=== PATIENT | female | born 1935 | race Caucasian/White ===

== ENCOUNTER 2018-08-13 14:15 | Inpatient (IN) | payer MEDICARE, OTHER ==
[~2018-08-13] VITALS: Ht 157.5 cm; Wt 90.7 kg
--- NOTE | 2018-08-13 15:54 | Diagnostic Imaging Report ---
EXAM: CT Chest WITHOUT contrast 08/13/2018 12:00 AM INDICATION: Trauma COMPARISON: None TECHNIQUE: Chest was scanned utilizing a multidetector helical scanner from the lung apex through the level of the adrenal glands without administration of IV contrast. Absence of intravenous contrast decreases sensitivity for detection of lymphadenopathy and vascular pathology. Coronal and sagittal reformations were obtained. Routine protocol was performed. Dose modulation, iterative reconstruction, and/or weight based adjustment of the mA/kV was utilized to reduce the radiation dose to as low as reasonably achievable. IV CONTRAST: None RADIATION DOSE: Total DLP: 595.98 mGy*cm Estimated effective dose: (DLP x 0.014 x size factor) mSv COMPLICATIONS: None FINDINGS: LINES/ TUBES: None. LUNGS AND AIRWAYS: There is minimal linear scarring and pleural thickening in the lingula, which may be the result of previous trauma or infection. There is atelectasis of the right lower lobe beneath pleural effusion. Trachea and main bronchi are clear. Right lower lobe bronchial branches are occluded related to atelectasis. PLEURA: There is a large right pleural effusion with dense material in the dependent portion, suggesting possible hemorrhagic contents. No pleural effusion on the left. No pneumothorax. HEART AND MEDIASTINUM: The thyroid gland is normal. No mediastinal, hilar or axillary lymphadenopathy. There are scattered small mediastinal nodes likely reactive. The heart is normal in size.. There is no pericardial effusion. The unenhanced thoracic aorta contains scattered calcified atherosclerotic plaque and is not dilated. The main pulmonary artery is not dilated. UPPER ABDOMEN: Included portions of the unenhanced liver, spleen, pancreas and adrenals show no focal abnormality. There is no ascites in the upper abdomen. BONES: No acute or suspicious bony lesion. No displaced fracture is identified. There are degenerative changes in the thoracic spine. SOFT TISSUES: Superficial surrounding soft tissue shows fat stranding likely representing contusion in the region of the right axilla. IMPRESSION: 1. There is a large right pleural effusion with underlying right lower lobe atelectasis. There is dense fluid in the dependent portion of the effusion suggesting hemorrhagic contents. There is likely soft tissue contusion in the right axillary area. No overlying displaced right rib fracture is seen, and there is no right pneumothorax. 2. The left lung is expanded and clear with scarring in the lingula. Signed by: Dr. Saleem Gee M.D. on 08/13/2018 3:51 PM
--- OUTSIDE RECORDS SUMMARY | 2018-08-13 16:33 | XMS REPORT ---
Author Author [facility] Address Unknown Phone Unavailable Care Team Providers Care Radio Director Name Role Phone Anali SHULTZ Unavailable Unavailable Problems This patient has no known problems. Allergies, Adverse Reactions, Alerts This patient has no known allergies or adverse reactions. Medications This patient has no known medications. Results Test Description Test Time Test Comments Text Results Atomic Results Result Comments CT CHEST W/O CONTRAST-HOPD 2018-08-13 15:38:00 [facility] [address] [place] [address] Patient Name: MISSAEL CARLOS MR #: [id number] : 1935 Age/Sex: 83/F Req #: [id number] Adm Physician: Ordered by: CATARINO SHULTZ MD Report #: [id number] Location: [facility] Room/Bed: Procedure: [id number] HOPD/CT CHEST W/O CONTRAST-HOPD Exam Date: 08/13/18 Exam Time: 1500 REPORT STATUS: Signed EXAM: CT Chest WITHOUT contrast 08/13/2018 12:00 AM INDICATION: Trauma COMPARISON: None TECHNIQUE: Chest was scanned utilizing a multidetector helical scanner from the lung apex through the level of the adrenal glands without administration of IV contrast. Absence of intravenous contrast decreases sensitivity for detection of lymphadenopathy and vascular pathology. Coronal and sagittal reformations were obtained. Routine protocol was performed. Dose modulation, iterative reconstruction, and/or weight based adjustment of the mA/kV was utilized to reduce the radiation dose to as low as reasonably achievable. IV CONTRAST: None RADIATION DOSE: Total DLP: 595.98 mGy*cm Estimated effective dose: (DLP x 0.014 x size factor) mSv COMPLICATIONS: None FINDINGS: LINES/ TUBES: None. LUNGS AND AIRWAYS: There is minimal linear scarring and pleural thickening in the lingula, which may be the result of previous trauma or infection. There is atelectasis of the right lower lobe beneath pleural effusion. Trachea and main bronchi are clear. Right lower lobe bronchial branches are occluded related to atelectasis. PLEURA: There is a large right pleural effusion with dense material in the dependent portion, suggesting possible hemorrhagic contents. No pleural effusion on the left. No pneumothorax. HEART AND MEDIASTINUM: The thyroid gland is normal. No mediastinal, hilar or axillary lymphadenopathy. There are scattered small mediastinal nodes likely reactive. The heart is normal in size.. There is no pericardial effusion. The unenhanc ed thoracic aorta contains scattered calcified atherosclerotic plaque and is not dilated. The main pulmonary artery is not dilated. UPPER ABDOMEN: Included portions of the unenhanced liver, spleen, pancreas and adrenals show no focal abnormality. There is no ascites in the upper abdomen. BONES: No acute or suspicious bony lesion. No displaced fracture is identified. There are degenerative changes in the thoracic spine. SOFT TISSUES: Superficial surrounding soft tissue shows fat stranding likely representing contusion in the region of the right axilla. IMPRESSION: 1. There is a large right pleural effusion with underlying right lower lobe atelectasis. There is dense fluid in the dependent portion of the effusion suggesting hemorrhagic contents. There is likely soft tissue contusion in the right axillary area. No overlying displaced right rib fracture is seen, and there is no right pneumothorax. 2. The left lung is expanded and clear with scarring in the lingula. Signed by: Dr. Ana Tillman M.D. on 08/13/2018 3:51 PM Dictated By: ANA TILLMAN MD [id number] Transcribed By: YEMI on 08/13/18 [id number] COPY TO: CATARINO SHULTZ MD
--- NOTE | 2018-08-13 16:53 | NUR ---
[facility] CALLED AND ON THEIR WAY
--- NOTE | 2018-08-13 17:49 | NUR ---
UPDATED TIME FOR EMS. FM/PT NOTIFIED.
--- NOTE | 2018-08-13 18:50 | NUR ---
REPORT TO EMS.
[2018-08-13] MEDS ORDERED: HYDROCODONE/APAP 5MG-325MG TAB PO PRN (20:00)
[2018-08-13] MEDS ORDERED: DEXTROSE 5%/0.45% SOD CHL 1,000 ML IV ONE (20:00)
--- NOTE | 2018-08-13 20:10 | NUR ---
RECEIVED PATIENT AAOX3, AMB W/ STANDBY ASSIST. PAIN TO RIGHT ARM WITH MOVEMENT, BUT PATIENT DOES NOT WANT ANY PAIN MEDICATION AT THIS TIME. RIGHT ARM HAS BRUISE, SKIN INTACT. TELE # 7 SR. IV TO LEFT AC 22G IVF @ 50 ML/HR. UPDATED PATIENT ON PLAN OF CARE. NO NEEDS VOICED AT THIS TIME. BED LOCKED AND IN LOWEST POSITION, CALL LIGHT WITHIN EASY REACH. WILL CONTINUE TO MONITOR PATIENT CLOSELY.
[2018-08-13 20:39] VITALS: BP 170/73
[2018-08-13 20:43] VITALS: BP 170/73
[2018-08-13] MEDS: CEFTRIAXONE SOD 1 GM/NS 50 ML 50 ML IV SCH (21:45)
[2018-08-13 23:07] VITALS: BP 170/73
[2018-08-13 23:49] VITALS: BP 157/69
[2018-08-14] VITALS (7 sets, daily range): BP systolic 138–152; BP diastolic 63–69
[2018-08-14 06:06] LABS: BASOPHILS % 0.7 % (0.0-1.0); EOSINOPHILS # (AUTO) 0.3 (0.0-0.4); EOSINOPHILS % 5.4 % (0.0-6.0); HEMATOCRIT 27.5 % (34.2-44.1); HEMOGLOBIN 8.9 g/dL (12.0-16.0); LYMPHOCYTES # (AUTO) 1.6 (1.0-3.2); LYMPHOCYTES % 26.9 % (18.0-39.1); MEAN CORPUSCULAR HEMOGLOBIN 31.4 pg (28-32); MEAN CORPUSCULAR HGB CONC 32.4 g/dL (31-35); MEAN CORPUSCULAR VOLUME 97.2 fL (81-99); MONOCYTES # (AUTO) 0.5 (0.2-0.8); MONOCYTES % 8.2 % (4.4-11.3); NEUTROPHILS # (AUTO) 3.5 (2.1-6.9); NEUTROPHILS % 58.5 % (38.7-80.0); PLATELET COUNT 183 x10e3/uL (140-360); RED BLOOD COUNT 2.83 x10e6/uL (3.6-5.1); RED CELL DISTRIBUTION WIDTH 12.4 % (11.7-14.4)
[2018-08-14 06:24] LABS: BLOOD UREA NITROGEN 11 mg/dL (7-26); BUN/CREATININE RATIO 15 (6-25); CALCIUM 8.6 mg/dL (8.4-10.2); CARBON DIOXIDE 26 mmol/L (22-29); CHLORIDE 107 mmol/L (98-107); CREATININE, SERUM 0.71 mg/dL (0.57-1.11); EST GLOMERULAR FILTRATION RATE > 60 ML/MIN (60-); GLUCOSE 123 mg/dL (74-118); SODIUM 139 mmol/L (136-145)
--- NOTE | 2018-08-14 07:37 | Diagnostic Imaging Report ---
EXAM: CHEST 2 VIEWS, PA and lateral DATE: 08/14/2018 Time stamp on exam: 6:33 AM INDICATION: Trauma COMPARISON: 08/13/[address] FINDINGS: LINES/TUBES: None LUNGS: No consolidations or edema. PLEURA: Large-moderate right pleural effusion. HEART AND MEDIASTINUM: Normal size and contour. BONES AND SOFT TISSUES: No obvious rib fractures. Degenerative changes of the spine. IMPRESSION: Right pleural effusion in the face of trauma presented to represent hemothorax. Signed by: Dr. Regis Rodriguez DO on 08/14/2018 7:33 AM
--- NOTE | 2018-08-14 07:39 | Diagnostic Imaging Report ---
Exam: Right rib series; 4 views dated 08/14/2018 at 6:33 AM History: Trauma to the chest; status post recent fall Comparison: CT scan of the chest dated 08/13/2018 Findings: No obvious rib fractures identified. Previously described pleural effusion on the right side is again noted. The bones are osteopenic. Impression: No obvious rib fractures. Signed by: Dr. Regis Rodriguez DO on 08/14/2018 7:36 AM
--- NOTE | 2018-08-14 14:58 | NUR ---
PT FLIPPED TO INPATIENT AND ABLE TO EDUCATE ABOUT IMM, SIGNED, FILED IN CHART, WITH COPY LEFT WITH FAMILY AT BEDSIDE.
--- NOTE | 2018-08-14 20:10 | NUR ---
ASSESSMENT DONE.NO PAIN VOICED.NO RESP.DISTRESS.AAOX3.AMBULATORY.VOIDED.BED LOCKED AND IN LOWEST POSITION.INSTRUCTED TO CALL FOR ASSISTANCE NEEDED.
--- NOTE | 2018-08-14 21:00 | NUR ---
PAIN VOICED AND BRUISES NOTED @ R. CHEST.BUT DENIED PAIN MEDICINE.
[2018-08-14] MEDS: CEFTRIAXONE SOD 1 GM/NS 50 ML 50 ML IV SCH (21:26)
[2018-08-15] VITALS (8 sets, daily range): BP systolic 141–167; BP diastolic 65–85
--- NOTE | 2018-08-15 01:29 | NUR ---
MAINTAINING NPO FOR PLACEMENT OF R.THORACOSTOMY TUBE.
[2018-08-15 06:12] LABS: BASOPHILS % 0.5 % (0.0-1.0); EOSINOPHILS # (AUTO) 0.4 (0.0-0.4); EOSINOPHILS % 5.6 % (0.0-6.0); HEMATOCRIT 29.5 % (34.2-44.1); HEMOGLOBIN 9.6 g/dL (12.0-16.0); LYMPHOCYTES % 26.3 % (18.0-39.1); MEAN CORPUSCULAR HEMOGLOBIN 31.5 pg (28-32); MEAN CORPUSCULAR HGB CONC 32.5 g/dL (31-35); MEAN CORPUSCULAR VOLUME 96.7 fL (81-99); MONOCYTES # (AUTO) 0.7 (0.2-0.8); MONOCYTES % 8.9 % (4.4-11.3); NEUTROPHILS # (AUTO) 4.3 (2.1-6.9); NEUTROPHILS % 58.3 % (38.7-80.0); PLATELET COUNT 235 x10e3/uL (140-360); RED BLOOD COUNT 3.05 x10e6/uL (3.6-5.1); RED CELL DISTRIBUTION WIDTH 12.5 % (11.7-14.4)
[2018-08-15 06:43] LABS: ALANINE AMINOTRANSFERASE 27 IU/L (0-55); ALBUMIN 3.3 g/dL (3.5-5.0); ALBUMIN/GLOBULIN RATIO 1.1 (0.8-2.0); ALKALINE PHOSPHATASE 59 IU/L (40-150); ANION GAP 11.1 mmol/L (8-16); BLOOD UREA NITROGEN 10 mg/dL (7-26); BUN/CREATININE RATIO 14 (6-25); CALCIUM 8.8 mg/dL (8.4-10.2); CARBON DIOXIDE 26 mmol/L (22-29); CHLORIDE 105 mmol/L (98-107); CREATININE, SERUM 0.74 mg/dL (0.57-1.11); EST GLOMERULAR FILTRATION RATE > 60 ML/MIN (60-); GLUCOSE 106 mg/dL (74-118); POTASSIUM 4.1 mmol/L (3.5-5.1); SODIUM 138 mmol/L (136-145)
--- NOTE | 2018-08-15 06:50 | NUR ---
Report given to the oncoming rn.walking rounds done.stable condition.
--- NOTE | 2018-08-15 07:50 | NUR ---
SPOKE WITH ANTONIO LOERA STATES PROCEDURE AT 10AM, PT NOTIFIED
--- NOTE | 2018-08-15 08:44 | NUR ---
MD PAT INTO SEE PT, DISCUSSED POC, AWARE THAT PT PROCEDURE AT 10AM PER OR
--- NOTE | 2018-08-15 09:28 | NUR ---
WHEELED OFF UNIT VIA BED FOR CHEST TUBE PLACEMENT, NO CHANGE IN CONDITION, FAMILY AT SIDE
[2018-08-15] MEDS ORDERED: BUPIVACAINE 0.25%/EPI 30ML SDV INJ ONE (09:57)
[2018-08-15] MEDS ORDERED: LIDOCAINE HCL 1% 30ML-PF VIAL ONE (10:11)
[2018-08-15] MEDS: SODIUM CHLORIDE 0.9% 1000ML 1,000 ML IV SCH (11:40)
--- NOTE | 2018-08-15 11:40 | NUR ---
BACK IN ROOM VIA BED, AA&OX3, RA AT THIS TIME, R UPPER CHEST TUBE TO WALL SUCTION, CHECKED WITH PACU CHARGE NURSE, 1050ML NOTED IN DRAINAGE CONTAINER, SECURED TO FLOOR AT THIS TIME, PT DENIES PAIN EXCEPT FROM R SHOULDER FROM "FALL", REPOSITIONED FOR COMFORT, HOB ELEVATED, CALL LIGHT WITHIN REACH
--- NOTE | 2018-08-15 12:04 | Progress Note ---
DATE: 08/15/2018 SUBJECTIVE: Ms. Pinto is an 83-year-old female, who denies any prior medical history, who fell in the bathroom 4 days prior to admission. She hit her right arm. She went to the Urgent Care. She was found to have a large right pleural effusion, probably hemothorax, so she is going to go for a placement of right-sided chest tube today. PHYSICAL EXAMINATION: GENERAL: She is awake and alert. VITAL SIGNS: Temperature is 98.4, blood pressure is 141/65. HEART: Regular rate. LUNGS: Decreased breath sounds on the right side. ABDOMEN: Distended and soft. LABORATORY DATA: On the blood work, potassium is 4.1, creatinine is 0.74, glucose 106. White count 7.45, hemoglobin 9.6, hematocrit is 29.5, platelets are normal. Chest CT shows a large right pleural effusion with underlying right lower lobe atelectasis fluid in the dependent portion of effusion content. ASSESSMENT: 1. Right pleural effusion, probably hemothorax. 2. Right arm pain and bruise. 3. Mechanical fall. 4. Anemia, probably secondary to bleeding. PLAN: At present time is to continue treatment. Continue to monitor respiratory status. The patient is going to go for right-side chest tube placement today. All this was discussed with the patient. All questions were answered to satisfaction. MD LI Mckeon/PETE /[id number]
--- NOTE | 2018-08-15 15:09 | Diagnostic Imaging Report ---
EXAM: CHEST SINGLE (PORTABLE) INDICATION: Right sided chest tube placement. COMPARISON: Chest radiograph 08/14/2018. FINDINGS: LINES/TUBES: Status post right-sided chest tube placement, overlying the right mid hemithorax. LUNGS: Decreased patchy opacity in the right lower lung zone. No evidence of pulmonary edema. PLEURA: Interval decrease in size of right pleural effusion, now small. No evidence of pneumothorax. HEART AND MEDIASTINUM: Unremarkable cardiomediastinal contour. BONES AND SOFT TISSUES: No acute radiographic abnormality. IMPRESSION: Status post right-sided chest tube placement with decreased right pleural effusion, previously characterized as hemothorax. Signed by: Dr. Olivia Gan MD on 08/15/2018 3:06 PM
[2018-08-15 16:07] LABS: HEMATOCRIT 29.9 % (34.2-44.1); MEAN CORPUSCULAR HEMOGLOBIN 32.7 pg (28-32); MEAN CORPUSCULAR HGB CONC 33.4 g/dL (31-35); MEAN CORPUSCULAR VOLUME 97.7 fL (81-99); PLATELET COUNT 234 x10e3/uL (140-360); RED BLOOD COUNT 3.06 x10e6/uL (3.6-5.1); RED CELL DISTRIBUTION WIDTH 12.7 % (11.7-14.4)
--- NOTE | 2018-08-15 16:19 | NUR ---
WITH STANDBY ASSIST, PT OOB TO BSC, VOIDED WITHOUT DIFFICULTY, ASSISTED BACK TO BED VIA PCT, PT REQUEST PAIN MEDICATION, OFFERED NORCO, PT REFUSING, SPOKE WITH MD PAT, TYLENOL ORDERED PER PT REQUEST
[2018-08-15 16:28] LABS: ANION GAP 12.1 mmol/L (8-16); BLOOD UREA NITROGEN 11 mg/dL (7-26); BUN/CREATININE RATIO 15 (6-25); CALCIUM 9.1 mg/dL (8.4-10.2); CARBON DIOXIDE 25 mmol/L (22-29); CHLORIDE 103 mmol/L (98-107); CREATININE, SERUM 0.71 mg/dL (0.57-1.11); EST GLOMERULAR FILTRATION RATE > 60 ML/MIN (60-); GLUCOSE 132 mg/dL (74-118); POTASSIUM 4.1 mmol/L (3.5-5.1); SODIUM 136 mmol/L (136-145)
[2018-08-15] MEDS: ACETAMINOPHEN 1000 MG/100 ML IV PRN ×2 (16:45→23:30)
--- NOTE | 2018-08-15 17:28 | NUR ---
MD Ira DONALD INTO SEE PT, DISCUSSED POC, CHECKED CHEST TUBE, MADE AWARE OF PT C/O R SHOULDER PAIN FROM FALLING, ORDERS NOTED
--- NOTE | 2018-08-15 17:45 | NUR ---
FIRE EXTINGUISHER MECHANIC TELEPHONED MD RINCON TO MAKE AWARE OF CONSULT, AWAITING CALL BACK
--- NOTE | 2018-08-15 17:51 | Operative Report ---
DATE OF PROCEDURE: 08/15/2018 SURGEON: Umair Salomon MD PREOPERATIVE DIAGNOSIS: Right traumatic hemothorax. POSTOPERATIVE DIAGNOSIS: Right traumatic hemothorax. OPERATION PERFORMED: Placement of right thoracostomy tube. ANESTHESIA: Local 1% Xylocaine and MAC. COMPLICATIONS: None. ESTIMATED BLOOD LOSS: Minimal. DESCRIPTION OF PROCEDURE: With the patient lying in bed in the supine position under good IV sedation, the right chest was then prepped with Betadine solution and draped in the usual manner. At about the 5th interspace, the area was then infiltrated with 1% Xylocaine solution with rib block of both the rib and above and below the area of entrance. Using the needle, the chest was entered and there was a clear bloody fluid encounter. An incision was made in this area and a #28 trocar chest tube was then introduced into the chest cavity without any difficulty. Immediately about 1200 mL of bloody fluid was recovered and drained into the chest tube bottle. The patient was stable during the evacuation. The chest tube was affixed to the skin with 0 silk sutures. Dressing was applied. Sponge, lap, and needle count was correct. The patient tolerated the procedure well and returned to the recovery room in stable condition. Umair Salomon MD JLR/MODL /[id number]
[2018-08-15] MEDS ORDERED: FENTANYL CITRATE/PF 100MCG/2 ML INJ ONE (17:53)
[2018-08-15] MEDS ORDERED: MIDAZOLAM HCL 2 MG/2 ML VIAL ONE (17:53)
[2018-08-15] MEDS ORDERED: KETAMINE HCL INJ 50 MG/ML 10 ML VIAL ONE (17:53)
[2018-08-15] MEDS ORDERED: PROPOFOL IV EMULSION 10 MG/ML 20 ML VIAL ONE (18:26)
[2018-08-15] MEDS ORDERED: LIDOCAINE HCL 2% LOCAL INJ 5 ML SDV VIAL INJ ONE (18:26)
[2018-08-15 18:36] LABS: BAND NEUTROPHILS % (MANUAL) 1 %; EOSINOPHILS % (MANUAL) 2 % (0-7); LYMPHOCYTES % (MANUAL) 13 % (19-48); MONOCYTES % (MANUAL) 10 % (3.4-9.0); NEUTROPHILS % (MANUAL) 73 % (40-74); PLATELET MORPHOLOGY COMMENT FEW LARGE
[2018-08-15 18:37] LABS: ANISOCYTOSIS SLIGHT; PLATELET ESTIMATE ADEQUATE; RBC MORPHOLOGY COMMENT NORMAL
[2018-08-15] MEDS: CEFTRIAXONE SOD 1 GM/NS 50 ML 50 ML IV SCH (21:12)
[2018-08-16] VITALS (8 sets, daily range): BP systolic 126–174; BP diastolic 60–77
--- NOTE | 2018-08-16 01:38 | NUR ---
ASSESSMENT DONE.R UPPER CHEST TUBE TO WALL SUCTION.PAIN MEDICATION TYLENOL GIVEN.PT REFUSED NORCO PO.BED LOCKED AND IN LOWEST POSITION.HOB ELEVATED.PHONE AND CALL LIGHT WITHIN REACH.INSTRUCTED TO CALL FOR ASSISTANCE NEEDED.
[2018-08-16] MEDS: ACETAMINOPHEN 1000 MG/100 ML IV PRN (05:38)
[2018-08-16 06:14] LABS: BASOPHILS % 0.4 % (0.0-1.0); EOSINOPHILS # (AUTO) 0.3 (0.0-0.4); EOSINOPHILS % 3.3 % (0.0-6.0); HEMATOCRIT 29.2 % (34.2-44.1); HEMOGLOBIN 9.7 g/dL (12.0-16.0); LYMPHOCYTES # (AUTO) 1.6 (1.0-3.2); LYMPHOCYTES % 19.4 % (18.0-39.1); MEAN CORPUSCULAR HEMOGLOBIN 32.1 pg (28-32); MEAN CORPUSCULAR HGB CONC 33.2 g/dL (31-35); MEAN CORPUSCULAR VOLUME 96.7 fL (81-99); MONOCYTES # (AUTO) 0.8 (0.2-0.8); MONOCYTES % 9.4 % (4.4-11.3); NEUTROPHILS # (AUTO) 5.5 (2.1-6.9); PLATELET COUNT 208 x10e3/uL (140-360); RED BLOOD COUNT 3.02 x10e6/uL (3.6-5.1); RED CELL DISTRIBUTION WIDTH 12.5 % (11.7-14.4)
[2018-08-16 06:23] LABS: BLOOD UREA NITROGEN 12 mg/dL (7-26); BUN/CREATININE RATIO 17 (6-25); CALCIUM 8.7 mg/dL (8.4-10.2); CARBON DIOXIDE 24 mmol/L (22-29); CHLORIDE 103 mmol/L (98-107); CREATININE, SERUM 0.71 mg/dL (0.57-1.11); EST GLOMERULAR FILTRATION RATE > 60 ML/MIN (60-); GLUCOSE 121 mg/dL (74-118); SODIUM 134 mmol/L (136-145)
--- NOTE | 2018-08-16 06:41 | Diagnostic Imaging Report ---
EXAMINATION: CHEST SINGLE (PORTABLE) INDICATION: Postop ^POST-OP ^Y COMPARISON: Chest x-ray 08/15/2018 FINDINGS: AP view TUBES and LINES: Stable right-sided chest tube overlying the right mid thorax. LUNGS: Low lung volumes with bibasilar airspace opacities. No pulmonary edema. PLEURA: No significant pleural effusions. No pneumothorax. HEART AND MEDIASTINUM: The cardiomediastinal silhouette is unremarkable. BONES AND SOFT TISSUES: No acute osseous lesion. Soft tissues are unremarkable. UPPER ABDOMEN: No free air under the diaphragm. IMPRESSION: Decreased right pleural effusion/hemothorax. Signed by: DR. Bello Thompson MD on 08/16/2018 6:38 AM
[2018-08-16] MEDS: SODIUM CHLORIDE 0.9% 1000ML 1,000 ML IV SCH (06:43)
--- NOTE | 2018-08-16 06:50 | NUR ---
Report given to the oncoming rn.walking rounds done.stable condition.
--- NOTE | 2018-08-16 07:25 | NUR ---
pt alert resp even and unlabored at this time no distress noted, pt call light in reach will cont to monitor. pt able to make needs known. pt has chest tube to right chest side area, to bed side to low suction. pt has no c/o pain when asked.
--- NOTE | 2018-08-16 10:20 | NUR ---
pt off unit for procedure.
--- NOTE | 2018-08-16 11:20 | NUR ---
pt returned to unit from procedure, resp even and unlabored at this time. call light in reach.
--- NOTE | 2018-08-16 11:44 | Progress Note ---
DATE: 08/16/2018 SUBJECTIVE: Ms. Pinto is an 83-year-old female, who denies any medical history, fell in the bathroom 4 days prior to admission. She came in complaining of right shoulder pain. She was found to have a large right pleural effusion. She had a chest tube placed yesterday to drain the hemothorax. She did complain of right shoulder pain. Orthopedic consult was requested with Dr. Joseph. OBJECTIVE: GENERAL: Today, she is awake and alert. VITAL SIGNS: Temperature is 98.4 and blood pressure 174/77. HEART: Regular rate. LUNGS: Decreased breath sounds on the right base. The left lung is clear to auscultation. ABDOMEN: Distended and soft. LABORATORY DATA: On the blood work, potassium 4.0, creatinine 0.71, glucose 121. White count 8.16, hemoglobin 9.7, and hematocrit 29.2. ASSESSMENT: 1. Right pleural effusion, status post chest tube. 2. Right shoulder pain. 3. Mechanical fall. 4. Anemia, probably secondary to bleeding. PLAN: Plan at the present time with this patient is to continue to monitor chest tube. We are awaiting for orthopedic consult. All this was discussed with the patient. All questions were answered to satisfaction. MD LI Mckeon/PETE /[id number]
--- NOTE | 2018-08-16 12:48 | Diagnostic Imaging Report ---
EXAM: SHOULDER RIGHT COMPLETE DATE: 08/16/2018 9:00 AM INDICATION: Shoulder pain COMPARISON: None FINDINGS: 3 views of the right shoulder show no displaced fracture or dislocation. Internal and external rotation of the humeral head is demonstrated. Soft tissues unremarkable. A right chest tube is noted. IMPRESSION: No acute bony abnormality. Signed by: Dr. Saleem Gee M.D. on 08/16/2018 12:44 PM
--- NOTE | 2018-08-16 16:27 | NUR ---
CASE MANAGEMENT INITIAL ASSESSMENT Ply Cutter to bedside to discuss plan of care with patient/family. CM/SW role and care transitions discussed. Anticipated discharge plan discussed along with duration of care. CM/SW discussed patients right to make decisions in care. CM work hours given. Patient lives: PATIENT LIVES IN 1 STORY HOME WITH SON IN [place], [place] Admit/Transfer: ED Hospital/ER visits since last admit: NO POA/Emergency contact: SON KOLBY MATHEW Current/Previous Home Health: NO PCP/Follow-up Care: DR. NAE BATISTA Current/Previous DME: WALK[facility], [facility]E, WHEEL [employer]AIR Medications (referring to index hospitalization or the first time you were in the hospital) a. Were changes made in your medications when you were in the hospital on [date of index hospitalization]? Yes No Not sure Explain: Note: If no or not sure, please skip to question d b. Did you understand the changes? Yes No Explain: c. Were you able to obtain your new medications right away? Yes Non/a SNF only Explain: d. Were you able to take your medications like the doctor wanted you to? Yes No Explain: e. Did the hospital give you an accurate, easy to understand list of medications when you left? Yes No n/a SNF only Explain: Scale of 1-10 how comfortable does patient feel with disease management in outpatient setting: Other Services: NOT AT THIS TIME Employment Status: RETIRED Areas of Concerns: SAFETY AT HOME- PATIENT A RECENT FALL Referral Needs: NONE AT THIS TIME- PATIENT WALKING WELL WITH PT Education Needs: FALLS IMM/ESPINOZA given and signed (if applicable): Goal for discharge: DISCHARGE HOME WITH NO NEEDS CM left business card at the bedside with contact information. Name and number was also written on the patients whiteboard. Patient verbalized understanding of discussion. CM will follow-up with ongoing discharge and transition of care needs.
--- NOTE | 2018-08-16 19:30 | NUR ---
report given to oncoming nurse, for continued care.
[2018-08-16] MEDS: CEFTRIAXONE SOD 1 GM/NS 50 ML 50 ML IV SCH (21:24)
[2018-08-17] VITALS (8 sets, daily range): BP systolic 132–160; BP diastolic 63–84
[2018-08-17] MEDS: SODIUM CHLORIDE 0.9% 1000ML 1,000 ML IV SCH ×2 (02:56→22:40)
[2018-08-17] MEDS: ACETAMINOPHEN 325 MG TAB PO PRN (05:43)
[2018-08-17 06:04] LABS: BASOPHILS % 0.3 % (0.0-1.0); EOSINOPHILS # (AUTO) 0.4 (0.0-0.4); EOSINOPHILS % 5.4 % (0.0-6.0); HEMATOCRIT 29.3 % (34.2-44.1); HEMOGLOBIN 9.7 g/dL (12.0-16.0); LYMPHOCYTES # (AUTO) 1.5 (1.0-3.2); LYMPHOCYTES % 18.5 % (18.0-39.1); MEAN CORPUSCULAR HEMOGLOBIN 31.8 pg (28-32); MEAN CORPUSCULAR HGB CONC 33.1 g/dL (31-35); MEAN CORPUSCULAR VOLUME 96.1 fL (81-99); MONOCYTES # (AUTO) 0.7 (0.2-0.8); MONOCYTES % 8.6 % (4.4-11.3); NEUTROPHILS # (AUTO) 5.3 (2.1-6.9); NEUTROPHILS % 66.4 % (38.7-80.0); PLATELET COUNT 219 x10e3/uL (140-360); RED BLOOD COUNT 3.05 x10e6/uL (3.6-5.1); RED CELL DISTRIBUTION WIDTH 12.7 % (11.7-14.4)
[2018-08-17 06:22] LABS: ANION GAP 11.9 mmol/L (8-16); BLOOD UREA NITROGEN 10 mg/dL (7-26); BUN/CREATININE RATIO 15 (6-25); CALCIUM 8.6 mg/dL (8.4-10.2); CARBON DIOXIDE 24 mmol/L (22-29); CHLORIDE 104 mmol/L (98-107); CREATININE, SERUM 0.67 mg/dL (0.57-1.11); EST GLOMERULAR FILTRATION RATE > 60 ML/MIN (60-); GLUCOSE 116 mg/dL (74-118); POTASSIUM 3.9 mmol/L (3.5-5.1); SODIUM 136 mmol/L (136-145)
--- NOTE | 2018-08-17 07:05 | Diagnostic Imaging Report ---
EXAMINATION: CHEST SINGLE (PORTABLE) INDICATION: POST-OP COMPARISON: Chest x-ray 08/16/2018, chest CT 08/13/2018 FINDINGS: AP view TUBES and LINES: Stable right-sided chest tube overlying the right mid thorax. LUNGS: Low lung volumes with bibasilar airspace opacities. No pulmonary edema. PLEURA: Stable small right pleural effusion/hemothorax. No pneumothorax. HEART AND MEDIASTINUM: The cardiomediastinal silhouette is unremarkable. BONES AND SOFT TISSUES: No acute osseous lesion. Soft tissues are unremarkable. UPPER ABDOMEN: No free air under the diaphragm. IMPRESSION: No significant change. Stable small right pleural effusion/hemothorax with adjacent atelectasis. Signed by: DR. Bello Thompson MD on 08/17/2018 7:01 AM
--- NOTE | 2018-08-17 07:30 | NUR ---
The patient is sleeping soundly, the Right chest tube in bubbling and there is no output overnight.
--- NOTE | 2018-08-17 09:35 | NUR ---
IMM EXPLAINED, SIGNED AND ON CHART COPY TO PT IN CARE TRANSITION FOLDER
--- NOTE | 2018-08-17 10:00 | NUR ---
The patient is soundly sleeping and is able to be wakened easily. Her son is at the bedside.
--- NOTE | 2018-08-17 12:00 | NUR ---
The patient has no complaint of pain in her right arm, but did last night and received Calvin. The patient expressed her concern about taking pain meds. She was made aware of her order for Tylenol prn.
--- NOTE | 2018-08-17 13:15 | Progress Note ---
DATE: 08/17/2018 SUBJECTIVE: Ms. Pinto is an 83-year-old female, who denies any prior medical history, fell in the bathroom, came to the emergency room complaining of right shoulder pain. She was found to have a large right pleural effusion. She had a chest tube placed day before yesterday. Orthopedic consult was requested. No fractures. She is doing better. OBJECTIVE: GENERAL: Today, she is awake and alert. VITAL SIGNS: Temperature is 98 and blood pressure 151/70. HEART: Regular rate. LUNGS: Decreased sounds in the base of the right side and left lung is clear to auscultation. ABDOMEN: Soft. LABORATORY DATA: White count 7.98, hemoglobin 9.7, and hematocrit is 29.3. Potassium 3.9, creatinine 0.67, and glucose 116. Chest x-ray done today shows no significant change. Stable small right pleural effusion, hemothorax with adjacent atelectasis. ASSESSMENT: 1. Right pleural effusion, status post chest tube. 2. Right shoulder pain. 3. Mechanical fall. 4. Anemia, probably secondary to bleeding. PLAN: At the present time is to continue with the chest tube. Continue to monitor respiratory status. No fractures in her shoulder. She is going to need PT and OT as an outpatient. She will be able to go home once the chest tube gets removed. All this was discussed with the patient. All questions were answered to satisfaction. MD LI Mckeon/PETE /[id number]
--- NOTE | 2018-08-17 14:00 | NUR ---
The son is at the bedside, the patient has no complaints.
--- NOTE | 2018-08-17 16:00 | NUR ---
The patient is sitting up at the bedside and has no complaints. The chest tube has no out put this shift.
--- NOTE | 2018-08-17 18:45 | NUR ---
Bedside rounds complete, Dr. Wilder Salomon at the bedside.
--- NOTE | 2018-08-17 20:00 | NUR ---
Dr. Aime mcneil. Removed chest tube at bedside. Patient tolerated well. Patient can be discharged home tomorrow from Dr. Salomon standpoint.
[2018-08-17] MEDS: CEFTRIAXONE SOD 1 GM/NS 50 ML 50 ML IV SCH (21:30)
[2018-08-18] MEDS: ACETAMINOPHEN 325 MG TAB PO PRN
[2018-08-18 00:26] VITALS: BP 121/58
[2018-08-18 04:00] VITALS: BP 129/58
[2018-08-18 06:03] LABS: BASOPHILS % 0.4 % (0.0-1.0); EOSINOPHILS # (AUTO) 0.6 (0.0-0.4); EOSINOPHILS % 6.4 % (0.0-6.0); HEMATOCRIT 27.9 % (34.2-44.1); HEMOGLOBIN 9.2 g/dL (12.0-16.0); LYMPHOCYTES # (AUTO) 1.9 (1.0-3.2); LYMPHOCYTES % 19.1 % (18.0-39.1); MEAN CORPUSCULAR HEMOGLOBIN 31.6 pg (28-32); MEAN CORPUSCULAR VOLUME 95.9 fL (81-99); MONOCYTES # (AUTO) 0.9 (0.2-0.8); MONOCYTES % 9.4 % (4.4-11.3); NEUTROPHILS # (AUTO) 6.3 (2.1-6.9); NEUTROPHILS % 64.1 % (38.7-80.0); PLATELET COUNT 242 x10e3/uL (140-360); RED BLOOD COUNT 2.91 x10e6/uL (3.6-5.1); RED CELL DISTRIBUTION WIDTH 12.6 % (11.7-14.4)
[2018-08-18 06:33] LABS: BLOOD UREA NITROGEN 12 mg/dL (7-26); BUN/CREATININE RATIO 17 (6-25); CALCIUM 8.9 mg/dL (8.4-10.2); CARBON DIOXIDE 27 mmol/L (22-29); CHLORIDE 103 mmol/L (98-107); CREATININE, SERUM 0.71 mg/dL (0.57-1.11); EST GLOMERULAR FILTRATION RATE > 60 ML/MIN (60-); GLUCOSE 105 mg/dL (74-118); SODIUM 135 mmol/L (136-145)
[2018-08-18 07:35] VITALS: BP 141/66
--- NOTE | 2018-08-18 07:46 | NUR ---
Rcvd patient in report this am. Patient is asleep in bed at this time. No s/s of distress noted
--- NOTE | 2018-08-18 09:00 | NUR ---
Patient is AAox3. Patient had chest tube removed yesterday. Dressing to right chest clean and dry. No s/s of distress noted. No shortness of breath noted when ambulating. Lung jimenez clear to auscultation but diminished on right side. Bowel sounds present x4. No edema noted
--- NOTE | 2018-08-18 10:03 | Diagnostic Imaging Report ---
EXAMINATION: CHEST 2 VIEWS INDICATION: ^HEMOTHORAX COMPARISON: Chest x-ray 08/17/2018 FINDINGS: PA and lateral views TUBES and LINES: Right chest tube is removed. LUNGS: Round focus of airspace disease in the base of the right lung. No new findings in the left lung. PLEURA: Lateral right pleural thickening (13 mm) is suggestive of effusion. No pneumothorax. HEART AND MEDIASTINUM: The cardiomediastinal silhouette is unremarkable.. BONES AND SOFT TISSUES: No focal osseous lesions. Soft tissues are unremarkable. UPPER ABDOMEN: No free air under the diaphragm. IMPRESSION: Right basilar airspace opacity is suggestive of rounded atelectasis. Right pleural thickening is suggestive of residual effusion. No pneumothorax after chest tube removal. Signed by: Dr. J Luis Costa MD on 08/18/2018 9:59 AM
[2018-08-18 10:55] VITALS: BP 141/66
[2018-08-18 12:04] VITALS: BP 115/64
--- NOTE | 2018-08-18 12:05 | NUR ---
IV removed at this time from right hand. Pressure dressing applied.
--- NOTE | 2018-08-18 12:25 | NUR ---
Patient discharged from facility to home. Patient assisted out via staff in wheelchair. Reviewed all discharge paperwork, follow up appts and no RX's needed. Dressing clean and dry to right chest. patient to leave in place until monday
== END 2018-08-18 12:32 | disposition home or self-care (01) | DRG 201 ==
LOC: FSED 14:15 → ERHOLD 16:16 → OBSVTOIN 16:19 → IMCU 19:20 → MED/SURG 20:10
PROVIDERS: ADMIT Internal Medicine; ATTEND Internal Medicine
PROC: 0W9930Z Drainage of Right Pleural Cavity with Drainage Device, Percutaneous Approach (ICD-10-PCS; principal; 2018-08-15 10:30)
DX: S27.1XXA Traumatic hemothorax, initial encounter (principal); W18.30XA Fall on same level, unspecified, initial encounter; Y93.E8 Activity, other personal hygiene; Y92.511 Restaurant or cafe as the place of occurrence of the external cause; D50.0 Iron deficiency anemia secondary to blood loss (chronic); M25.511 Pain in right shoulder
CPT/HCPCS: 36415; 71045; 71046; 71101; 71250; 80048; 80053; 85007; 85025; 85027; 99284; J0696; J2001; J2250; J7030

== ENCOUNTER → 2018-09-03 | Outpatient (CLI) | payer MEDICARE, OTHER ==
--- NOTE | 2018-09-03 12:04 | Diagnostic Imaging Report ---
EXAMINATION: PA and lateral views of the chest. COMPARISON: Chest radiograph 08/18/2018, CT chest 08/13/2018 CLINICAL HISTORY: Traumatic hemothorax status post drainage DISCUSSION: The lungs are well-inflated. Small residual right pleural effusion with adjacent lower and middle lobe airspace disease likely atelectasis. No pneumothorax. Left lung remains clear. Cardiomediastinal contour and pulmonary vasculature are unchanged. No acute osseous abnormality. IMPRESSION: Small residual right pleural effusion with adjacent lower and middle lobe airspace disease, likely atelectasis. Signed by: Dr. Jose Serrato M.D. on 09/03/2018 12:01 PM
== END ==
LOC: RAD 11:12
PROVIDERS: ATTEND Surgery
DX: S27.1XXA Traumatic hemothorax, initial encounter (principal); J90 Pleural effusion, not elsewhere classified
CPT/HCPCS: 71046

== ENCOUNTER → 2018-09-10 | Outpatient (CLI) | payer MEDICARE, OTHER ==
--- NOTE | 2018-09-10 15:49 | Diagnostic Imaging Report ---
MRI of the right shoulder without contrast. History: Shoulder pain. Rotator cuff tear. Decreased range of motion. Pain not responding to conservative management Comparison: None Technique: Coronal PD FS, sagital PD FS, and axial PD and PD FS. Findings: Rotator cuff: There is rotator cuff tendinosis with a full-thickness tear involving the anterior fibers of the supraspinatus and subscapularis tendons at the humeral insertion site. There is minimal retraction of the torn fibers and mild to moderate supraspinatus and subscapularis muscle atrophy. Additionally, there is infraspinatus tendinosis. The teres minor tendon is intact. Osseous acromion complex: There is a type II acromion with mild lateral downsloping. There is moderate degenerative arthrosis at the acromioclavicular joint with undersurface spurring and narrowing of the supraspinatus tendon outlet. There is mild subacromial/subdeltoid bursitis. Glenohumeral joint: There is degeneration and fraying of the labrum most pronounced anteriorly and inferiorly. The articular cartilage surfaces are thin with regions of fraying and fissuring. There is scarring and thickening in the axillary pouch. There is an effusion/synovitis in the rotator interval and subcoracoid space. Biceps tendon: The biceps tendon is subluxed medially out of the bicipital groove. There is fraying at the biceps anchor. This is best seen on axial image 10 through 14. Other findings: Negative for muscle denervation or osseous fracture. Impression: Rotator cuff tendinosis with a full-thickness tear involving the anterior fibers of the supraspinatus and subscapularis tendons at the humeral insertion site. There is minimal retraction of the torn fibers and mild to moderate supraspinatus and subscapularis muscle atrophy. Additionally, there is infraspinatus tendinosis. The biceps tendon is subluxed medially out of the bicipital groove. There is fraying at the biceps anchor. Moderate degenerative arthrosis at the acromioclavicular joint with undersurface spurring and narrowing of the supraspinatus tendon outlet. There is mild subacromial/subdeltoid bursitis. Degeneration and fraying of the labrum most pronounced anteriorly and inferiorly. Scarring and thickening in the axillary pouch with effusion/synovitis in the rotator interval and subcoracoid space. Signed by: Dr. Durga Rivas M.D. on 09/10/2018 3:46 PM
== END ==
LOC: MRI 10:27
PROVIDERS: ATTEND Specialist
DX: M75.121 Complete rotator cuff tear or rupture of right shoulder, not specified as traumatic (principal)

== ENCOUNTER 2018-10-08 10:00 | Outpatient (RCR) | payer MEDICARE, OTHER | END 2018-10-09 | LOC: PT 10:00 | PROVIDERS: ATTEND Specialist | DX: M75.101 Unspecified rotator cuff tear or rupture of right shoulder, not specified as traumatic (principal); M62.81 Muscle weakness (generalized); M25.511 Pain in right shoulder; M25.611 Stiffness of right shoulder, not elsewhere classified ==

== ENCOUNTER → 2018-11-09 | Outpatient (RCR) | payer MEDICARE, OTHER | LOC: PT 10-11 11:27 | PROVIDERS: ATTEND Specialist | DX: M75.101 Unspecified rotator cuff tear or rupture of right shoulder, not specified as traumatic (principal); M62.81 Muscle weakness (generalized); M25.611 Stiffness of right shoulder, not elsewhere classified ==

== ENCOUNTER 2018-11-14 09:00 | Outpatient (RCR) | payer MEDICARE, OTHER | END 2018-12-09 | LOC: PT 09:00 | PROVIDERS: ATTEND Specialist | DX: M75.101 Unspecified rotator cuff tear or rupture of right shoulder, not specified as traumatic (principal); M25.611 Stiffness of right shoulder, not elsewhere classified; M62.81 Muscle weakness (generalized) | CPT/HCPCS: 97139 ==

== ENCOUNTER → 2022-08-05 | Day surgery (SDC) | payer MEDICARE, OTHER ==
[2022-08-01 12:14] LABS: BASOPHILS % 0.5 % (0.0-1.0); EOSINOPHILS # (AUTO) 0.2 (0.0-0.4); EOSINOPHILS % 2.4 % (0.0-6.0); HEMATOCRIT 40.1 % (34.2-44.1); HEMOGLOBIN 13.3 g/dL (12.0-16.0); LYMPHOCYTES # (AUTO) 2.3 (1.0-3.2); LYMPHOCYTES % 28.8 % (18.0-39.1); MEAN CORPUSCULAR HGB CONC 33.2 g/dL (31-35); MEAN CORPUSCULAR VOLUME 96.6 fL (81-99); MONOCYTES # (AUTO) 0.6 (0.2-0.8); MONOCYTES % 7.4 % (4.4-11.3); NEUTROPHILS # (AUTO) 4.8 (2.1-6.9); NEUTROPHILS % 60.5 % (38.7-80.0); PLATELET COUNT 238 x10e3/uL (140-360); RED BLOOD COUNT 4.15 x10e6/uL (3.6-5.1); RED CELL DISTRIBUTION WIDTH 11.9 % (11.7-14.4)
[2022-08-01 12:30] LABS: ANION GAP 14.9 mmol/L (8-16); CALCIUM 9.5 mg/dL (8.4-10.2); CREATININE, SERUM 1.14 mg/dL (0.57-1.11); POTASSIUM 3.9 mmol/L (3.5-5.1)
[~2022-08-05] MED LIST: BENICAR20 MG PO; BUPIVACAINE 0.5%/EPI 30 ML SDV INJ ONE; DEXAMETHASONE SOD PHOS INJ 4 MG/ML SDV ONE; EPHEDRINE SULFATE INJ 50 MG/ML VIAL ONE; FENTANYL CITRATE/PF 100MCG/2 ML INJ ONE; GLYCOPYRROLATE INJ 0.2 MG/ML VIAL ONE; HYGROTON25 MG PO; MIDAZOLAM HCL 2 MG/2 ML VIAL ONE; NEOSTIGMINE 1 MG/ML 10ML VIAL ONE; ONDANSETRON HCL INJ 2MG/ML 2ML 2 MG/ML VIAL ONE; POVIDONE IODINE 0.05% 0.05 % ML PO ONE; PROPOFOL IV EMULSION 10 MG/ML 20 ML VIAL ONE; ROCURONIUM BROMIDE 10 MG/ML 5ML VIAL IV ONE; SEVOFLURANE INHAL SOLN 250 ML PEN BTL ONE; SUCCINYLCHOLINE CHLORIDE 20 MG/ML 10ML VIAL ONE; TYLENOL EXTRA500 MG PO; VIT D3 PO
[2022-08-05 11:45] VITALS: BP 118/74
== END | disposition home or self-care (01) ==
LOC: OR 07:20
PROVIDERS: ATTEND Surgery
DX: K43.6 Other and unspecified ventral hernia with obstruction, without gangrene (principal); I10 Essential (primary) hypertension; G89.29 Other chronic pain; Z01.810 Encounter for preprocedural cardiovascular examination; Z01.812 Encounter for preprocedural laboratory examination; Z01.818 Encounter for other preprocedural examination; Z79.899 Other long term (current) drug therapy
CPT/HCPCS: 36415; 49594; 71046; 80048; 85025; 88302; 93005; C1781; J0330; J1100; J2250; J2405; J2704; J2710; J3010

== ENCOUNTER → 2024-01-26 | Outpatient (REF) | payer MEDICARE ==
[~2024-01-26] MED LIST changes: -BUPIVACAINE 0.5%/EPI 30 ML SDV INJ ONE; -DEXAMETHASONE SOD PHOS INJ 4 MG/ML SDV ONE; -EPHEDRINE SULFATE INJ 50 MG/ML VIAL ONE; -FENTANYL CITRATE/PF 100MCG/2 ML INJ ONE; -GLYCOPYRROLATE INJ 0.2 MG/ML VIAL ONE; -MIDAZOLAM HCL 2 MG/2 ML VIAL ONE; -NEOSTIGMINE 1 MG/ML 10ML VIAL ONE; -ONDANSETRON HCL INJ 2MG/ML 2ML 2 MG/ML VIAL ONE; -POVIDONE IODINE 0.05% 0.05 % ML PO ONE; -PROPOFOL IV EMULSION 10 MG/ML 20 ML VIAL ONE; -ROCURONIUM BROMIDE 10 MG/ML 5ML VIAL IV ONE; -SEVOFLURANE INHAL SOLN 250 ML PEN BTL ONE; -SUCCINYLCHOLINE CHLORIDE 20 MG/ML 10ML VIAL ONE
== END ==
LOC: CT 11:27
PROVIDERS: ATTEND Internal Medicine
DX: R31.9 Hematuria, unspecified (principal); R10.9 Unspecified abdominal pain
CPT/HCPCS: 74176

== ENCOUNTER 2025-01-31 09:12 | Emergency (ER) | payer MEDICARE ==
[~2025-01-31] VITALS: Ht 157.5 cm; Wt 88.6 kg
[2025-01-31 09:35] VITALS: PULSE 93; RESP 18; TEMP 98.1; O2SAT 98
[2025-01-31] MEDS ORDERED: VENTOLIN HFA18 GM INH (10:12)
[2025-01-31] MEDS ORDERED: CORICIDIN HBP1 EAC3 PO (10:13)
[2025-01-31] MEDS ORDERED: PAXLOVID 150-11 EAC2 PO (10:25)
== END 2025-01-31 10:35 | disposition home or self-care (01) ==
LOC: FSED 09:24
DX: R05.9 Cough, unspecified (principal); U07.1 COVID-19; J06.9 Acute upper respiratory infection, unspecified
CPT/HCPCS: 0223U; 83518; 87400; 99284

== ENCOUNTER 2025-04-08 13:52 | Emergency (ER) | payer MEDICARE ==
[~2025-04-08] VITALS: Ht 157.5 cm; Wt 88.5 kg
[~2025-04-08 13:52] MED LIST changes: +CORICIDIN HBP1 EAC3 PO; +PAXLOVID 150-11 EAC2 PO; +VENTOLIN HFA18 GM INH
[2025-04-08 14:47] LABS: BASOPHILS % 0.6 % (0.0-1.0); EOSINOPHILS % 2.0 % (0.0-6.0); LYMPHOCYTES % 13.8 % (18.0-39.1); MONOCYTES % 6.7 % (4.4-11.3); NEUTROPHILS % 72.7 % (38.7-80.0); RED CELL DISTRIBUTION WIDTH 13.0 % (11.7-14.4)
[2025-04-08 14:51] LABS: INR 1.31
[2025-04-08 14:58] LABS: EST GLOMERULAR FILTRATION RATE 32.0 ML/MIN (>=60)
[2025-04-08 17:42] LABS: LEUKOCYTE ESTERASE ,URINE NEGATIVE (NEGATIVE); PROTEIN,URINE DIPSTICK NEGATIVE (NEGATIVE); URINE UROBILINOGEN 0.2 mg/dL (0.2 - 1)
[2025-04-08 19:11] VITALS: PULSE 84; RESP 16; TEMP 98.3
[2025-04-08] MEDS: HEPARIN SOD/DEXTROSE 5% 25000 UNIT/250 ML BAG IV SCH (19:23)
[2025-04-08 19:37] VITALS: BP 111/54; PULSE 83; RESP 17; TEMP 98.3; O2SAT 97
== END 2025-04-08 20:20 | disposition other institution (70) ==
LOC: ER 14:10
DX: M79.89 Other specified soft tissue disorders (principal); I82.493 Acute embolism and thrombosis of other specified deep vein of lower extremity, bilateral; I10 Essential (primary) hypertension; E66.9 Obesity, unspecified
CPT/HCPCS: 36415; 71045; 80053; 81001; 83735; 83880; 84484; 85025; 85610; 85730; 93005; 93970; 99284